=== PATIENT | male | born 1990 | race Caucasian/White ===

== ENCOUNTER 2017-08-04 07:40 | Emergency (ER) | payer SELFPAY ==
--- NOTE | 2017-08-04 08:01 | ED.PDOC ---
History of Present Illness - General Chief Complaint: Upper Extremity Injury Stated Complaint: Left shoulder discomfort Time Seen by Provider: 08/04/17 07:56 Source: patient - History of Present Illness Occurred: yesterday - He comes to the ED with left shoulder pain. He was horsing around with his brother last night and injured his left shoulder. Seems to be more tender on the left distal clavicular area. Pain - Upper Extremity: moderate: Shoulder, left Allergies/Adverse Reactions: Allergies NO KNOWN ALLERGY Allergy (Verified 11/22/14 04:59) Home Medications: Ambulatory Orders Diclofenac Potassium 50 mg PO TID #21 tab 08/04/17 Tramadol HCl [Ultram] 50 mg PO Q6HRS #20 tab 08/04/17 Review of Systems - Review of Systems Constitutional: States: other - Pain to the left shoulder EENTM: States: no symptoms reported Respiratory: States: no symptoms reported Cardiology: States: no symptoms reported Gastrointestinal/Abdominal: States: no symptoms reported Genitourinary: States: no symptoms reported Musculoskeletal: States: see HPI, joint pain Skin: States: no symptoms reported Neurological: States: no symptoms reported Endocrine: States: no symptoms reported Hematologic/Lymphatic: States: no symptoms reported All other Systems: Reviewed and Negative, No Change from Baseline Past Medical History (General) - Patient Medical History Hx Seizures: No Hx Stroke: No Hx Dementia: No Hx Asthma: No Hx of COPD: No Hx Cardiac Disorders: No Hx Congestive Heart Failure: No Hx Pacemaker: No Hx Hypertension: No Hx Thyroid Disease: No Hx Diabetes: No Hx Gastroesophageal Reflux: No Hx Renal Disease: No Hx Cancer: No Hx of HIV: No Hx Hepatitis C: No Hx MRSA: No MRSA Source:: Wound - Vaccination History Hx Tetanus, Diphtheria Vaccination: No - pt, states I Dont Know Hx Influenza Vaccination: No Hx Pneumococcal Vaccination: No - Social History Hx Tobacco Use: No Hx Chewing Tobacco Use: Yes Hx Alcohol Use: No Hx Substance Use: Yes Hx Substance Use Treatment: No Hx Depression: No Hx Physical Abuse: No Hx Emotional Abuse: No Hx Suspected Abuse: No - Female History Patient : No Family Medical History - Family History Father Family History: Unknown Name: dmitriy avalos Age (years): 52 Living Status: Still Living Hx Family Hypertension: Yes Age of Onset (years of age): 43 Hx Family Diabetes: Yes Age of Onset (years of age): 43 Physical Exam - Physical Exam General Appearance: Alert, Anxious, Ill Appearing, Well Developed, Well Groomed Eyes, Ears, Nose, Throat Exam: PERRL/EOMI, normal ENT inspection Neck: non-tender, full range of motion, supple Cardiovascular/Respiratory: regular rate, rhythm, normal peripheral pulses, no JVD, normal breath sounds, no respiratory distress Abdominal Exam: non-tender, no organomegaly Back Exam: normal inspection, no CVA tenderness Shoulder Exam: limited ROM, pain - Tenderness to palpation to the left distal clavicle. Elbow/Forearm Exam: normal inspection, non-tender, no evidence of injury Wrist Exam: normal inspection, no evidence of injury Hand Exam: normal inspection, non-tender, no evidence of injury Mental Status: alert, oriented x 3 Skin Exam: normal color - Has some abrasions to the left periscapular region. No obvious deformity noted. Departure - Departure Clinical Impression: Sprain and strain of shoulder and upper arm Condition: Fair Departure Forms: ED Discharge - Pt. Copy, Patient Portal Self Enrollment Instructions: DI for Arm Pain Activity: ambulate only with walker Referrals: Farhan Vanessa MD [Referring] - 1-2 Weeks Prescriptions: Tramadol HCl [Ultram] 50 mg PO Q6HRS #20 tab Diclofenac Potassium 50 mg PO TID #21 tab Home Medications: Ambulatory Orders Diclofenac Potassium 50 mg PO TID #21 tab 08/04/17 Tramadol HCl [Ultram] 50 mg PO Q6HRS #20 tab 08/04/17
[2017-08-04 08:03] VITALS: TEMP 98.5; O2SAT 98
[2017-08-04] MEDS ORDERED: HYDROcodone 7.5MG/APAP 325MG 1 EA TAB PO ONE (08:08)
--- NOTE | 2017-08-04 08:39 | RAD ---
EXAM DESCRIPTION: Shoulder,Left 2 or More Views CLINICAL HISTORY: 27 years, Male, Injury, pain, decreased ROM COMPARISON: FINDINGS: No fracture or dislocation. Joint spaces appear preserved. IMPRESSION: No fracture or dislocation Electronically signed by: Jaime Yates MD 08/04/2017 8:38 AM [facility]
--- NOTE | 2017-08-04 08:39 | RAD ---
EXAM DESCRIPTION: Clavicle, left CLINICAL HISTORY: 27 years, Male, Injury, pain, decreased ROM COMPARISON: FINDINGS: No definite fracture or dislocation. If there is concern about acromioclavicular ligamentous injury additional evaluation can be obtained IMPRESSION: No definite fracture or dislocation Electronically signed by: Jaime Yates MD 08/04/2017 8:37 AM [facility]
[2017-08-04 09:33] VITALS: BP 121/76
== END 2017-08-04 09:20 | disposition home or self-care (01) ==
LOC: ER 07:40
DX: S46.912A Strain of unspecified muscle, fascia and tendon at shoulder and upper arm level, left arm, initial encounter (principal); F17.220 Nicotine dependence, chewing tobacco, uncomplicated; Y93.83 Activity, rough housing and horseplay; X58.XXXA Exposure to other specified factors, initial encounter

== ENCOUNTER → 2020-08-11 | Outpatient (CLI) | payer OTHER | LOC: YCFC.O 12:01 | PROVIDERS: ATTEND Nurse Practitioner Family | DX: Z20.828 Contact with and (suspected) exposure to other viral communicable diseases (principal) ==